=== PATIENT | female | born 1955 | race Two or more races ===

== ENCOUNTER 2017-01-25 18:15 | Emergency (ER) | payer MEDICAID ==
[~2017-01-25] VITALS: Ht 154.9 cm; Wt 67.1 kg
[~2017-01-25 18:15] MED LIST: ARIMIDEX1 MG ORAL; ATORVASTATIN CA20 MG ORAL; CIPRO500 MG PO; FLUOXETINE HCL20 MG ORAL; IBUPROFEN600 MG ORAL; LIPITOR20 MG ORAL; MECLIZINE HCL25 MG ORAL; METFORMIN HCL1000 M1 ORAL; METFORMIN HCL500 M1 ORAL; NKM; NORCO 5-325 TA1 EACH ORAL; ZITHROMAX250 MG ORAL; ZOFRAN ODT4 MG ORAL
[2017-01-25 18:40] VITALS: BP 117/70
[2017-01-25] MEDS ORDERED: AMOXICILLIN500 MG ORAL (19:28)
[2017-01-25 19:50] VITALS: BP 120/76
--- NOTE | 2017-01-25 21:36 | Emergency Room Report ---
History of Present Illness General Chief Complaint: Flu Like Symptoms Present Illness HPI The patient is a 61-year-old female presenting for 2 weeks of productive cough, subjective fevers, and sore throat. Sputum produces yellow to green. She denies any sick contacts or recent travel. Pain is described as a 7/10 dull ache to the back of the throat and does not radiate. Pain worse with swallowing and coughing. She denies other symptoms including nausea, vomiting, rash, headache, dizziness, hemoptysis, abdominal pain Allergies: Coded Allergies: No Known Allergies (Unverified , 03/03/13) Patient History Past Medical History: see triage record Pertinent Family History: none Reviewed Nursing Documentation: PMH: Agreed, PSxH: Agreed Nursing Documentation-PMH Hx Hypertension: No - HYPERCHOLESTEROLEMIA Hx Diabetes: Yes Hx Cancer: Yes - R BREAST Review of Systems All Other Systems: negative except mentioned in HPI Physical Exam Vital Signs Date Time Temp Pulse Resp B/P Pulse Ox O2 Delivery O2 Flow Rate FiO2 01/25/17 18:18 98.2 93 18 117/70 97 Room Air Sp02 EP Interpretation: reviewed, normal General Appearance: no apparent distress, alert, GCS 15, non-toxic Head: normocephalic, atraumatic Eyes: bilateral eye PERRL, bilateral eye normal inspection ENT: hearing grossly normal, no angioedema, normal voice, tonsillar swelling, pharyngeal erythema Neck: full range of motion, supple/symm/no masses Respiratory: chest non-tender, lungs clear, normal breath sounds, speaking full sentences Cardiovascular #1: regular rate, rhythm, no edema Musculoskeletal: back normal, gait/station normal, normal range of motion, non- tender Neurologic: alert, oriented x3, responsive, motor strength/tone normal, sensory intact, normal gait, speech normal Psychiatric: judgement/insight normal, memory normal, mood/affect normal, no suicidal/homicidal ideation Skin: normal color, no rash, warm/dry, well hydrated Lymphatic: adenopathy Medical Decision Making PA Attestation Dr. Hugo is my supervising physician. Patient management was discussed with my supervising physician Diagnostic Impression: Primary Impression: Pharyngitis, acute Qualified Codes: J02.9 - Acute pharyngitis, unspecified ER Course The patient is a 61-year-old female presenting for 2 weeks of productive cough, subjective fevers, and sore throat Differential diagnosis include but not limited to pharyngitis, sinusitis, AOM, bronchitis, PNA Physical exam: Vitals within normal limits. Afebrile. No apparent distress HEENT exam: There is bilateral tonsillar edema, erythema, and exudate. Uvula midline. Moist mucous membranes. There is bilateral cervical lymphadenopathy. Lungs are clear to auscultation bilaterally Skin is warm and dry. No rash CXR unremarkable The patient will be discharged home with a prescription for amoxicillin and is given ER precautions. Patient will followup with primary care Chest X-Ray Diagnostic Results EP Interpretation: Yes Findings: no consolidation, no effusion, no pneumothorax, no acute cardiopulmonary disease Number of Views: 1 PA Scribe Text I am acting as scribe for my supervising physician. My supervising physician's interpretation of the chest xrays are there is no consolidation, no effusion, no acute cardiopulmonary disease, no pneumothorax Last Vital Signs Date Time Temp Pulse Resp B/P Pulse Ox O2 Delivery O2 Flow Rate FiO2 01/25/17 19:50 98.4 89 17 120/76 98 Room Air Status: improved Disposition: HOME, SELF-CARE Condition: Improved Scripts Amoxicillin* (AMOXIL*) 500 Mg Capsule 500 MG ORAL Q12HR, #20 CAP Prov: CARSON TURCIOS 01/25/17 Referrals: [facility] (PCP) Patient Instructions: Pharyngitis Additional Instructions: I discussed my findings with the patient. All questions and concerns have been answered. Treatment and medication compliance have been addressed. I advised the patient that they need to follow up with PMD in 3-5 days. Return to ED if pain remains or worsens, cough worsens or remains, you notice blood in your sputum, you notice wheezing, you experience a fever, or if needed for any reason. Patient verbalized understanding of discharge instructions. CARSON TURCIOS January 25, 2017 21:36
--- NOTE | 2017-01-26 10:36 | Diagnostic Imaging Report ---
Indications: COUGH Technique: Portable AP chest Findings: Comparison: 12/18/07 Right breast now absent. Surgical clips now noted in right axilla, right hilum. Visualized skeletal structures, remainder of the cardiomediastinal silhouette, pulmonary vasculature and parenchyma, and pleural surfaces remain unremarkable in appearance. IMPRESSION: No evidence of acute cardiopulmonary disease, unchanged Interval right mastectomy, right axillary and hilar surgeries
== END 2017-01-25 19:50 | disposition home or self-care (01) ==
LOC: EMR 18:40
DX: J02.9 Acute pharyngitis, unspecified (principal); R05 Cough; E78.00 Pure hypercholesterolemia, unspecified; E11.9 Type 2 diabetes mellitus without complications; Z85.3 Personal history of malignant neoplasm of breast
CPT/HCPCS: 71010; 99283; 99284

== ENCOUNTER 2017-05-25 03:03 | Emergency (ER) | payer MEDICAID ==
[~2017-05-25] VITALS: Ht 152.4 cm; Wt 49.0 kg
[~2017-05-25 03:03] MED LIST changes: +AMOXICILLIN500 MG ORAL
[2017-05-25] MEDS ORDERED: GLIPIZIDE5 MG ORAL (03:16)
[2017-05-25 03:22] VITALS: BP 132/76
[2017-05-25] MEDS ORDERED: MOBIC7.5 MG ORAL (03:36)
--- NOTE | 2017-05-25 03:36 | Emergency Room Report ---
History of Present Illness General Chief Complaint: Headache Source: Patient Present Illness [facility] this is a 61-year-old female who present to give a headache. She described the pain as the back of her head going to her neck. Worse with movement. No nausea no vomiting. No focal deficit. No trauma. No problem with her vision. Denies any other complaint. Tylenol helps. Allergies: Coded Allergies: No Known Allergies (Unverified , 03/03/13) Patient History Past Medical History: see triage record, old chart reviewed Past Surgical History: other Pertinent Family History: none Social History: Denies: smoking Last Menstrual Period: n/a Now: No Immunizations: other Reviewed Nursing Documentation: PMH: Agreed, PSxH: Agreed Nursing Documentation-PMH Hx Hypertension: No - HYPERCHOLESTEROLEMIA Hx Diabetes: Yes Hx Cancer: Yes - R BREAST Review of Systems Eye: Denies: eye pain, blurred vision ENT: Denies: ear pain, nose congestion, throat swelling Respiratory: Denies: cough, shortness of breath Cardiovascular: Denies: chest pain, palpitations Gastrointestinal: Denies: abdominal pain, diarrhea, nausea, vomiting Musculoskeletal: Denies: back pain, joint pain Skin: Denies: rash Neurological: Denies: headache, numbness Endocrine: Denies: increased thirst, increased urine Hematologic/Lymphatic: Denies: easy bruising All Other Systems: negative except mentioned in HPI Physical Exam Vital Signs Date Time Temp Pulse Resp B/P (MAP) Pulse Ox O2 Delivery O2 Flow Rate FiO2 05/25/17 03:11 97.7 86 16 132/76 96 Room Air vitals normal Sp02 EP Interpretation: reviewed, normal General Appearance: well appearing, no apparent distress, alert Head: normocephalic, atraumatic Eyes: bilateral eye PERRL, bilateral eye EOMI ENT: hearing grossly normal, normal pharynx Neck: full range of motion, supple, no meningismus, tender - Over the upper cervical area. Worse with movement her head. No meningeal signs. Respiratory: chest non-tender, lungs clear, normal breath sounds Cardiovascular #1: regular rate, rhythm, no murmur Gastrointestinal: normal bowel sounds, non tender, no mass, no organomegaly, no bruit, non-distended Musculoskeletal: back normal, gait/station normal, normal range of motion Psychiatric: mood/affect normal Skin: warm/dry Medical Decision Making Diagnostic Impression: Primary Impression: Osteoarthritis of neck Qualified Codes: M47.812 - Spondylosis without myelopathy or radiculopathy, cervical region Additional Impression: Headache Qualified Codes: R51 - Headache ER Course Patient with headache secondary to neck pain. No red flags indicate cauda equina syndrome, spinal or abscess or neoplastic process. No evidence of bleed or meningitis. No evidence of neoplastic process. We'll discharge home. Last Vital Signs Date Time Temp Pulse Resp B/P (MAP) Pulse Ox O2 Delivery O2 Flow Rate FiO2 05/25/17 03:22 97.7 16 132/76 96 Room Air 05/25/17 03:11 86 Status: improved Disposition: HOME, SELF-CARE Condition: Stable Scripts Meloxicam* (MOBIC*) 7.5 Mg Tablet 7.5 MG ORAL DAILY, #30 TAB 0 Refills Prov: GILL VELASCO M.D. 05/25/17 Referrals: [facility] (PCP) Additional Instructions: followup with your DrBety in 7 days. Return if symptom worsen. GILL VELASCO M.D. May 25, 2017 03:36
[2017-05-25 03:42] VITALS: BP 132/76
== END 2017-05-25 03:44 | disposition home or self-care (01) ==
LOC: EMR 03:30
DX: M47.892 Other spondylosis, cervical region (principal); R51 Headache; E11.9 Type 2 diabetes mellitus without complications; Z85.3 Personal history of malignant neoplasm of breast; E78.00 Pure hypercholesterolemia, unspecified
CPT/HCPCS: 99283

== ENCOUNTER 2018-05-02 12:51 | Emergency (ER) | payer MEDICAID ==
[~2018-05-02] VITALS: Ht 154.9 cm; Wt 67.1 kg
[~2018-05-02 12:51] MED LIST changes: +GLIPIZIDE5 MG ORAL; +MOBIC7.5 MG ORAL
[2018-05-02 13:15] VITALS: BP 116/67
[2018-05-02] MEDS ORDERED: Methocarbamol 500mg tab ORAL ONE (13:45)
[2018-05-02] MEDS ORDERED: Ketorolac 30mg Inj IM ONE (13:45)
--- NOTE | 2018-05-02 13:51 | Emergency Room Report ---
History of Present Illness General Chief Complaint: Pain Source: Patient Present Illness HPI 62-year-old female patient presents ER complaining of right-sided hip pain for the past week. Reports pain begins lower back and radiates down her right side towards her hip and to her leg. Denies recent injury or trauma. Reports takes Tylenol for symptoms which pops relief of symptoms. Denies dysuria, hematuria, vaginal discharge. Denies fever, chest pain, shortness of breath, abdominal pain. states she is able to walk. Denies bowel or bladder incontinence. reports last menstrual period "years ago". denies other acute symptoms. denies diarrhea or blood in stool. Allergies: Coded Allergies: No Known Allergies (Unverified , 03/03/13) Patient History Past Medical History: see triage record Now: No Reviewed Nursing Documentation: PMH: Agreed; PSxH: Agreed Nursing Documentation-PMH Past Medical History: No History, Except For Hx Hypertension: No - HYPERCHOLESTEROLEMIA Hx Diabetes: Yes Hx Cancer: Yes - R BREAST Review of Systems All Other Systems: negative except mentioned in HPI Physical Exam Vital Signs Date Time Temp Pulse Resp B/P (MAP) Pulse Ox O2 Delivery O2 Flow Rate FiO2 05/02/18 13:10 99.3 74 20 116/67 96 Room Air 99.3 Sp02 EP Interpretation: reviewed, normal General Appearance: well appearing, no apparent distress, alert, GCS 15, non- toxic Head: normocephalic, atraumatic Eyes: bilateral eye normal inspection, bilateral eye PERRL ENT: hearing grossly normal, normal pharynx, no angioedema, normal voice, uvula midline, moist mucus membranes Neck: full range of motion Respiratory: lungs clear, normal breath sounds, no rhonchi, no respiratory distress, no accessory muscle use, no wheezing, speaking full sentences Cardiovascular #1: regular rate, rhythm, no edema Musculoskeletal: back normal, digits/nails normal, gait/station normal, normal range of motion, non-tender, no calf tenderness, pelvis stable, David's Sign negative, other - no leg length discrepancy, leg not held in internal and external rotation, no point tenderness, no spinous process tenderness or bony depression spine Neurologic: alert, oriented x3, responsive, escrow assistant III-XII nml as tested, motor strength/tone normal, SLR negative, sensory intact, cerebellar normal, normal gait, speech normal Psychiatric: mood/affect normal Skin: no rash Medical Decision Making PA Attestation Dr. Tse is my supervising Physician whom patient management has been discussed with. Diagnostic Impression: Primary Impression: Hip pain, left Additional Impression: Low back pain ER Course Pt. presents to the ED c/o low back and right-sided hip pain. Ddx considered but are not limited to fracture, sprain, strain, contusion, dislocation, disc herniation, muscle spasm, sciatica. No erythema, no warmth to touch, no fever, nontoxic appearing, low suspicion for septic joint. no leg length discrepancy, no internal or external rotation, able to ambulate, low suspicion for dislocation or fracture. Vital signs: are WNL, pt. is afebrile Ordered CT, UA, and pain medication. ER COURSE Provided with pain medication. UA unremarkable, patient asymptomatic, negative nitrites, low suspicion for UTI , does not require antibiotics at this time. CT of the lumbar spine and pelvis she has no acute fracture, degenerative changes noted, bulging disks noted per the official report. discussed with patient, likely cause of symptoms. Discuss results with the patient. Provided patient with copy of results. Instructed patient to followup with PCP and discuss results of report with patient, discuss need for further treatment and referral. Patient instructed on RICE method: rest, ice, compression, elevation. Patient instructed on rest, ice and heat. Patient instructed to be WBAT Contact information for orthopedic urgent care provided, follow-up with urgent care if unable to followup with primary care provider and get referral to drug regulatory affairs specialist. Followup with primary care provider. Discuss referral to ortho/pain management/ PT as needed. Discuss further imaging with MRI/CT as needed. follow-up with primary care provider at scheduled appointment. patient reports symptoms improved, ambulatory, Ok for discharge to home. DISCHARGE: -Rx provided for Tylenol for pain symptoms. -Rx provided for Methocarbamol. SE drowsiness, do not drink, drive, or operate heavy machinery while using. - Rx provided for lidocaine patches At this time pt. is stable for d/c to home. Patient is resting comfortably, in no acute distress, nontoxic appearing, talking without difficulty. Will provide printed patient care instructions, and any necessary prescriptions. Patient instructed to follow with primary care provider in 3 - 5 days and to request further follow-up as needed. Care plan and follow up instructions have been discussed with the patient prior to discharge. Take medications as directed. Patient questions asked and answered. Patient reports understanding and agreement to treatment plan. ER precautions given, patient instructed to return to ER immediately for any new or worsening of symptoms. - Please note that this Emergency Department Report was dictated using [employer]uid[employer] disabilities resource teacher technology software, occasionally this can lead to erroneous entry secondary to interpretation by the dictation equipment. Labs Test 05/02/18 13:40 Urine Color Pale yellow Urine Appearance Slightly cloudy Urine pH 5 (4.5-8.0) Urine Specific [place] 1.025 (1.005-1.035) Urine Protein Negative (NEGATIVE) Urine Glucose (UA) Negative (NEGATIVE) Urine Ketones Negative (NEGATIVE) Urine Occult Blood Negative (NEGATIVE) Urine Nitrite Negative (NEGATIVE) Urine Bilirubin Negative (NEGATIVE) Urine Urobilinogen Normal MG/DL (0.0-1.0) Urine Leukocyte Esterase 2+ (NEGATIVE) Urine RBC 0-2 /HPF (0 - 2) Urine WBC 5-10 /HPF (0 - 2) Urine Squamous Epithelial Cells Few /LPF (NONE/OCC) Urine Bacteria Few /HPF (NONE) CT/MRI/US Diagnostic Results CT/MRI/US Diagnostic Results #1: Imaging Test Ordered: CT lumbar spine Impression Impression: No acute bony trauma Degenerative changes, as detailed on a level by level basis above, most notable at L3-4 At L3-4, there is mild circumferential annular bulge. This does not significantly narrow the spinal canal, but may compromise the right lateral recess. There is minimal bilateral facet arthrosis. At L4-5, there is circumferential annular bulge as well as posterior broad-based central disc protrusion and osteophyte formation. In combination with ligamentum flavum hypertrophy, this results in mild narrowing of the spinal canal. The neural foramina are preserved. There is minimal facet arthrosis on the right. At L5-S1, there is minimal circumferential annular bulge, which does not significantly compromise the spinal canal. There is mild narrowing of the right neural foramen by facet arthrosis The included extra spinal soft tissues are unremarkable. CT/MRI/US Diagnostic Results #2: Imaging Test Ordered: CT pelvis Impression Impression: No acute abnormality Minimal degenerative change of the right hip joint Colonic diverticulosis Last Vital Signs Date Time Temp Pulse Resp B/P (MAP) Pulse Ox O2 Delivery O2 Flow Rate FiO2 05/02/18 13:41 99.3 05/02/18 13:15 20 116/67 96 Room Air 05/02/18 13:10 74 Status: improved Disposition: HOME, SELF-CARE Condition: Stable Scripts Acetaminophen* (TYLENOL EXTRA STRENGTH*) 500 Mg Tablet 500 MG ORAL Q8H PRN for Prn Headache/Temp > 101, #30 TAB 0 Refills Prov: Markus Mancilla 05/02/18 Methocarbamol* (ROBAXIN*) 500 Mg Tablet 500 MG PO TID, #21 TAB 0 Refills Prov: Markus Mancilla 05/02/18 Lidocaine (Lidocaine) 1 Each Adh..patch 5 % TP DAILY, #7 PATCH Prov: Markus Mancilla 05/02/18 Referrals: NOT CHOSEN [facility],REFERRING (PCP) Patient Instructions: Back Exercises, [id number], Back Pain, Adult, Easy-to- Read, Herniated Disk, [id number], Hip Pain, Sciatica, Sciatica With Rehab- [facility] Additional Instructions: Patient instructed to follow up with primary care provider 3-5 and discuss further referral and imaging at that time. Patient instructed on rest, ice and heat. Do not take muscle relaxant prior to drinking, driving, or operating heavy machinery. Take medications as directed. Patient questions asked and answered. ER precautions given, patient instructed to return to ER immediately for any new or worsening of symptoms. Markus Mancilla May 02, 2018 13:51
[2018-05-02 14:07] LABS: APPEARANCE,URINE SLIGHTLY CLOUDY; BILIRUBIN, URINE NEGATIVE (NEGATIVE); COLOR,URINE PALE YELLOW; GLUCOSE, URINE (UA) NEGATIVE (NEGATIVE); KETONES,URINE NEGATIVE (NEGATIVE); LEUKOCYTE ESTERASE ,URINE 2+ (NEGATIVE); NITRITE,URINE NEGATIVE (NEGATIVE); PH,URINE 5 (4.5-8.0); PROTEIN,URINE NEGATIVE (NEGATIVE); UROBILINOGEN,URINE NORMAL MG/DL (0.0-1.0)
--- NOTE | 2018-05-02 14:40 | Diagnostic Imaging Report ---
Indications: Back pain with pain radiating down right leg Technique: Spiral acquisitions obtained through the lumbar spine. Multiplanar reconstructions were generated. No IV contrast utilized. Total dose length product 539.82 mGycm. CTDIvol(s) 16.07 mGy. Dose reduction achieved using automated exposure control Comparison: none Findings: Vertebral body heights are preserved. There is minimal posterior offset of L2 on L3, vertebral body alignment otherwise normal. The disc spaces are preserved. No acute fractures. No dislocations. There are degenerative changes of the bilateral sacroiliac joints. At L3-4, there is mild circumferential annular bulge. This does not significantly narrow the spinal canal, but may compromise the right lateral recess. There is minimal bilateral facet arthrosis. At L4-5, there is circumferential annular bulge as well as posterior broad-based central disc protrusion and osteophyte formation. In combination with ligamentum flavum hypertrophy, this results in mild narrowing of the spinal canal. The neural foramina are preserved. There is minimal facet arthrosis on the right. At L5-S1, there is minimal circumferential annular bulge, which does not significantly compromise the spinal canal. There is mild narrowing of the right neural foramen by facet arthrosis The included extra spinal soft tissues are unremarkable. Impression: No acute bony trauma Degenerative changes, as detailed on a level by level basis above, most notable at L3-[address] scanner at [facility] is accredited by the [employer] and the scans are performed using protocols designed to limit radiation exposure to as low as reasonably achievable to attain images of sufficient resolution adequate for diagnostic evaluation.
--- NOTE | 2018-05-02 14:48 | Diagnostic Imaging Report ---
Indication: Right leg pain Technique: Noncontrast spiral acquisitions obtained through the pelvis. Multiplanar reconstructions generated. Total dose length product 343.92 mGycm. CTDIvol(s) 13.61 mGy. Dose reduction achieved using automated exposure control Comparison: none Findings: No acute fractures. No dislocations. There are degenerative changes of the bilateral sacroiliac joints. There is slight narrowing of the right hip joint. The pelvic viscera demonstrate colonic diverticulosis Impression: No acute abnormality Minimal degenerative change of the right hip joint Colonic diverticulosis The CT scanner at [facility] is accredited by the [employer] and the scans are performed using protocols designed to limit radiation exposure to as low as reasonably achievable to attain images of sufficient resolution adequate for diagnostic evaluation.
[2018-05-02] MEDS ORDERED: TYLENOL EXTRA500 MG ORAL (15:07)
[2018-05-02] MEDS ORDERED: LIDOCAINE700 M1 TP (15:07)
[2018-05-02] MEDS ORDERED: ROBAXIN500 MG PO (15:07)
[2018-05-02 15:23] VITALS: BP 123/76
== END 2018-05-02 15:26 | disposition home or self-care (01) ==
LOC: EMR 13:22
DX: M25.551 Pain in right hip (principal); M54.5 Low back pain; E11.8 Type 2 diabetes mellitus with unspecified complications; M51.36 Other intervertebral disc degeneration, lumbar region; M16.12 Unilateral primary osteoarthritis, left hip; K57.30 Diverticulosis of large intestine without perforation or abscess without bleeding; E78.00 Pure hypercholesterolemia, unspecified
CPT/HCPCS: 72131; 72192; 81003; 96372; 99284; J1885

== ENCOUNTER 2019-01-13 20:33 | Emergency (ER) | payer MEDICAID ==
[~2019-01-13] VITALS: Ht 154.9 cm; Wt 66.2 kg
[~2019-01-13 20:33] MED LIST changes: +LIDOCAINE700 M1 TP; +ROBAXIN500 MG PO; +TYLENOL EXTRA500 MG ORAL
[2019-01-13] MEDS ORDERED: ASPIR 8181 MG ORAL (20:40)
--- NOTE | 2019-01-13 20:42 | NUR ---
ED Nurse Note: Pt arrived ED from home, c/o both legs pain 7/10 due to fell one month ago. Pt is A/O X 4. Vital signs stable at this time, waiting for orders.
[2019-01-13] MEDS ORDERED: ALPRAZOLAM0.25 MG ORAL (21:40)
[2019-01-13 21:47] VITALS: BP 116/64
--- NOTE | 2019-01-13 21:47 | NUR ---
ER DISCHARGE NOTE: Patient is cleared to be discharged per Lakshmi. Pt is A/O x 4 on room air with stable vital signs. Pt was given dc and prescription instructions and was able to verbalize understanding. Pt's ID band removed. Pt is able to ambulate with steady gait and pt took all belongings.
--- NOTE | 2019-01-14 02:29 | Emergency Room Report ---
History of Present Illness General Chief Complaint: Lower Extremity Injury Source: Patient Present Illness HPI 63-year-old female presents ED for evaluation. Patient complaining of bilateral leg pain 1 month. Pain is dull, 5 out of 10, nonradiating. Is able to walk. Denies any back pain. Denies any bowel or bladder incontinence. States she is also feeling tingling in her mouth and in her arms. States that she saw her PMD for this and was told that she may have anxiety. Patient states that she does feel anxious from time to time but is not on medication. Denies SI or HI. No other aggravating relieving factors. Denies any other associated symptoms Allergies: Coded Allergies: No Known Allergies (Unverified , 03/03/13) Patient History Past Medical History: DM Past Surgical History: none Pertinent Family History: none Social History: Denies: smoking, alcohol use, drug use Last Menstrual Period: 2016 Now: No Immunizations: UTD Reviewed Nursing Documentation: PMH: Agreed; PSxH: Agreed Nursing Documentation-PMH Past Medical History: No History, Except For Hx Hypertension: No - HYPERCHOLESTEROLEMIA Hx Diabetes: Yes Hx Cancer: Yes - R BREAST Review of Systems All Other Systems: negative except mentioned in HPI Physical Exam Vital Signs Date Time Temp Pulse Resp B/P (MAP) Pulse Ox O2 Delivery O2 Flow Rate FiO2 01/13/19 20:34 97.9 75 14 119/69 95 Room Air Sp02 EP Interpretation: reviewed, normal General Appearance: no apparent distress, alert, GCS 15, non-toxic Head: normocephalic, atraumatic Eyes: bilateral eye normal inspection, bilateral eye PERRL ENT: hearing grossly normal, normal pharynx, no angioedema, normal voice Neck: full range of motion, supple/symm/no masses Respiratory: chest non-tender, lungs clear, normal breath sounds, speaking full sentences Cardiovascular #1: regular rate, rhythm, no edema Cardiovascular #2: 2+ carotid (R), 2+ carotid (L), 2+ radial (R), 2+ radial (L) , 2+ dorsalis pedis (R), 2+ dorsalis pedis (L) Gastrointestinal: normal bowel sounds, non tender, soft, non-distended, no guarding, no rebound Rectal: deferred Genitourinary: normal inspection, no CVA tenderness Musculoskeletal: back normal, gait/station normal, normal range of motion, non- tender Neurologic: alert, oriented x3, responsive, motor strength/tone normal, sensory intact, speech normal Psychiatric: judgement/insight normal, memory normal, no suicidal/homicidal ideation, no delusions, anxious Reflexes: 3+ bicep (R), 3+ bicep (L), 3+ tricep (R), 3+ tricep (L), 3+ knee (R) , 3+ knee (L) Skin: normal color, no rash, warm/dry, well hydrated Lymphatic: no adenopathy Medical Decision Making Diagnostic Impression: Primary Impression: Anxiety ER Course Hospital Course 63-year-old F presents ED complaining of tingling to hands and face pain in both legs Differential diagnoses include: contusion, muscle cramps, anxiety Clinical course Patient placed on stretcher. on radiographer cardiac catheterization. After initial history, physical exam reveals a middle-aged female in no acute distress. 5 out of 5 motor strength in all extremities. No focal neurological deficits. No sensory deficits. No palpable bony tenderness. No crepitus or bruising. Discussed findings with patient. I believe her generalized vague symptoms are likely related to anxiety. Patient appears anxious in ED. I see no reason for imaging or workup at this time. Will discharge with short course of low-dose Xanax. We'll also provide mental health for referrals. Safe for discharge close outpatient follow-up I. I feel this is a highly complex case requiring extensive working including EKG/Rhythm strip, Xray/CT/US, Blood/urine lab work, repeat exams while in ED, and administration of strong opiates/narcotics for pain control, admission to hospital or close patient follow up. Diagnosis - anxiety Stable and discharged to home with Rx Xanax. Followup with PMD. Return to ED if symptoms recur or worse Last Vital Signs Date Time Temp Pulse Resp B/P (MAP) Pulse Ox O2 Delivery O2 Flow Rate FiO2 01/13/19 21:47 97.9 83 14 116/64 95 Room Air Status: improved Disposition: HOME, SELF-CARE Condition: Stable Scripts Alprazolam* (XANAX*) 0.25 Mg Tablet 0.25 MG ORAL TID PRN for For Anxiety, #10 TAB Prov: Sebastien Martins MD 01/13/19 Referrals: NON PHYSICIAN (PCP) [facility] + [facility] Psych ER - Peds ER - [facility] Intake Hotline - Patient Instructions: Panic Attacks, [id number] Sebastien Martins MD Jan 14, 2019 02:29
== END 2019-01-13 22:30 | disposition home or self-care (01) ==
LOC: EMR 22:26
DX: F41.9 Anxiety disorder, unspecified (principal); M79.605 Pain in left leg; M79.604 Pain in right leg; E78.00 Pure hypercholesterolemia, unspecified; E11.9 Type 2 diabetes mellitus without complications; Z85.3 Personal history of malignant neoplasm of breast
CPT/HCPCS: 99282

== ENCOUNTER 2019-02-03 16:43 | Emergency (ER) | payer MEDICAID ==
[~2019-02-03] VITALS: Ht 154.9 cm; Wt 66.7 kg
[~2019-02-03 16:43] MED LIST changes: +ALPRAZOLAM0.25 MG ORAL; +ASPIR 8181 MG ORAL
[2019-02-03 17:00] VITALS: BP 114/68
[2019-02-03] MEDS ORDERED: Acetaminophen 500mg (ES) tab ORAL ONE (17:00)
[2019-02-03] MEDS ORDERED: Methocarbamol 750mg tab ORAL ONE (17:00)
--- NOTE | 2019-02-03 17:00 | NUR ---
ED Nurse Note: pt states she has back pain and feels something in left breast, pt stated that she has history of breast cancer on the right and can feel it to the left now. pt is complaining of 10/10 pain x 2 weeks. and only take tylenol for it. seen by pedro. will continue to monitor.
--- NOTE | 2019-02-03 17:05 | NUR ---
ED Nurse Note: pt went to xray with tech
[2019-02-03] MEDS ORDERED: TYLENOL EXTRA500 MG ORAL (18:15)
[2019-02-03] MEDS ORDERED: ROBAXIN-750750 MG PO (18:15)
[2019-02-03] MEDS ORDERED: LIDODERM700 M1 TOPIC (18:15)
--- NOTE | 2019-02-03 18:21 | Diagnostic Imaging Report ---
Indication: Left sided rib pain. Trauma. Findings: 4 views of the left chest wall was obtained for evaluation of the ribs. There is no acute fracture identified. There is no soft tissue swelling demonstrated. The lung is essentially clear. There is no pneumothorax. The costophrenic angle is sharp. Other osseous structures visualized are unremarkable. There are surgical clips in the right axilla and right suprahilar region . There is absence of the right breast consistent with mastectomy. Impression: Negative left unilateral rib series. Signs of previous right mastectomy and axillary node dissection for breast carcinoma.
[2019-02-03 18:35] VITALS: BP 114/68
--- NOTE | 2019-02-03 18:35 | NUR ---
ER DISCHARGE NOTE: Patient is cleared to be discharged per ERMD, pt is aox4, on room air, with stable vital signs. pt was given dc and prescription instructions, pt was able to verbalize understanding, pt id band removed without complications. pt is able to ambulate with steady gait. pt took all belongings.
--- NOTE | 2019-02-03 21:41 | Emergency Room Report ---
History of Present Illness General Chief Complaint: Back Pain-No Injury Source: Patient Present Illness HPI 63 yo F presents to ED c/o L upper back pain. started 2 weeks ago. pain is 6/ 10 dull, radiating to L anterior chest. denies SOB. Denies any recent fall or injury. Denies chest pain. No other aggravating relieving factors. Denies any other associated symptoms Allergies: Coded Allergies: No Known Allergies (Unverified , 03/03/13) Patient History Past Medical History: DM Past Surgical History: none Pertinent Family History: none Social History: Denies: smoking, alcohol use, drug use Now: No Immunizations: UTD Reviewed Nursing Documentation: PMH: Agreed; PSxH: Agreed Nursing Documentation-PMH Past Medical History: No History, Except For Hx Hypertension: No - HYPERCHOLESTEROLEMIA Hx Diabetes: Yes Hx Cancer: Yes - R BREAST Review of Systems All Other Systems: negative except mentioned in HPI Physical Exam Vital Signs Date Time Temp Pulse Resp B/P (MAP) Pulse Ox O2 Delivery O2 Flow Rate FiO2 02/03/19 16:47 98.4 87 17 94 Room Air 02/03/19 17:00 114/68 Sp02 EP Interpretation: reviewed, normal General Appearance: no apparent distress, alert, GCS 15, non-toxic Head: normocephalic, atraumatic Eyes: bilateral eye normal inspection, bilateral eye PERRL ENT: hearing grossly normal, normal pharynx, no angioedema, normal voice Neck: full range of motion, supple/symm/no masses Respiratory: lungs clear, normal breath sounds, speaking full sentences, other - reproducible L sided chest wall pain Cardiovascular #1: regular rate, rhythm, no edema Cardiovascular #2: 2+ carotid (R), 2+ carotid (L), 2+ radial (R), 2+ radial (L) , 2+ dorsalis pedis (R), 2+ dorsalis pedis (L) Gastrointestinal: normal bowel sounds, non tender, soft, non-distended, no guarding, no rebound Rectal: deferred Genitourinary: normal inspection, no CVA tenderness Musculoskeletal: gait/station normal, normal range of motion, tender - L upper back pain Neurologic: alert, oriented x3, responsive, motor strength/tone normal, sensory intact, speech normal Psychiatric: judgement/insight normal, memory normal, mood/affect normal, no suicidal/homicidal ideation Reflexes: 3+ bicep (R), 3+ bicep (L), 3+ tricep (R), 3+ tricep (L), 3+ knee (R) , 3+ knee (L) Skin: normal color, no rash, warm/dry, well hydrated Lymphatic: no adenopathy Medical Decision Making Diagnostic Impression: Primary Impression: Upper back strain Qualified Codes: S29.012A - Strain of muscle and tendon of back wall of thorax , initial encounter ER Course Hospital Course 63 yo F presents to ED c/o L upper back and rib pain Differential diagnoses include: Fracture, dislocation, sprain, contusion Clinical course Patient placed on stretcher. After initial history and physical, I ordered pain medications and CXR with rib series Xrays read shows no acute fracture/dislocation. no PTX Discussed findings with patient. Pain is likely muscular. Improved after medications. Safe for discharge with close outpatient follow-up. We'll provide referrals Diagnosis - upper back pain Stable and discharged to home with prescription for tylenol, robaxin, lidoderm. weight bear as tolerated. Followup with PMD. Return to ED if symptoms recur or worsen Other X-Ray Diagnostic Results Other X-Ray Diagnostic Results : X-Ray ordered: CXR + rib series # of Views/Limited Vs Complete: 3 View Indication: Pain EP Interpretation: Yes Interpretation: no dislocation, no soft tissue swelling, no fractures, other - no PTX Impression: No acute disease Electronically Signed by: Electronically signed by Sebastien Martins MD Last Vital Signs Date Time Temp Pulse Resp B/P (MAP) Pulse Ox O2 Delivery O2 Flow Rate FiO2 02/03/19 18:35 98.4 87 17 114/68 94 Room Air Status: improved Disposition: HOME, SELF-CARE Condition: Stable Scripts Lidocaine (Lidoderm) 1 Each Adh..patch 1 PATCH TOPIC DAILY, #7 PATCH 0 Refills Patch(es) may remain in place for up to 12 hours in any 24-hour period. Prov: Sebastien Martins MD 02/03/19 Methocarbamol* (ROBAXIN-750*) 750 Mg Tablet 750 MG PO TID, #21 TAB 0 Refills Prov: Sebastien Martins MD 02/03/19 Acetaminophen* (TYLENOL EXTRA STRENGTH*) 500 Mg Tablet 500 MG ORAL Q8H PRN for Prn Headache/Temp > 101, #30 TAB 0 Refills Prov: Sebastien Martins MD 02/03/19 Patient Instructions: Thoracic Strain, [id number] Sebastien Martins MD February 03, 2019 21:41
== END 2019-02-03 18:35 | disposition home or self-care (01) ==
LOC: EMR 17:07
DX: S29.012A Strain of muscle and tendon of back wall of thorax, initial encounter (principal); X58.XXXA Exposure to other specified factors, initial encounter; Y92.9 Unspecified place or not applicable; E11.9 Type 2 diabetes mellitus without complications; E78.00 Pure hypercholesterolemia, unspecified; Z85.3 Personal history of malignant neoplasm of breast; R07.81 Pleurodynia
CPT/HCPCS: 99283

== ENCOUNTER 2019-04-14 14:23 | Inpatient (IN) | payer MEDICAID ==
[~2019-04-14] VITALS: Ht 154.9 cm; Wt 66.7 kg
[~2019-04-14 14:23] MED LIST changes: +FAMCICLOVIR500 MG ORAL; +LIDODERM700 M1 TOPIC; +ROBAXIN-750750 MG PO
[2019-04-14] MEDS ORDERED: JANUMET 50-5001 EACH ORAL (14:35)
[2019-04-14] MEDS ORDERED: FLUOXETINE HCL20 MG ORAL (14:35)
[2019-04-14] MEDS ORDERED: GLIMEPIRIDE4 MG ORAL (14:35)
--- NOTE | 2019-04-14 14:39 | NUR ---
ED Nurse Note: PT WALKED IN TO ER TODAY FROM HOME. AOX4. PT C/O DIZZINESS AND PALPITATIONS X THIS AM. PT DENIES PALPITATIONS AND DIZZINESS AT THIS TIME. GAIT STEADY IN ER. PT DENIES NAUSEA OR VOMITING THOUGH SHE DOES C/O POSTERIOR HEADACHE, 02/24. PT STATES SHE HAD A SIMILAR EPISODE 2 MONTHS AGO AND THAT SYMPTOMS WENT AWAY WITH EXERCISE.
[2019-04-14 14:41] VITALS: BP 118/68
--- NOTE | 2019-04-14 14:46 | Emergency Room Report ---
History of Present Illness General Chief Complaint: Dizziness Source: Medical Record Present Illness HPI 63 year old female, presents with palpitations x1 month, history of hypertension, hyperlipidemia, diabetes, breast cancer lightheadedness x2 days, she states she had some chest pressure yesterday, some nausea, no vomiting, no aggravating or alleviating factors, she did denotes the severity as mild she also states that her extremities feel sweaty. Patient presents for evaluation Allergies: Coded Allergies: No Known Allergies (Unverified , 03/03/13) Patient History Past Medical History: see triage record Reviewed Nursing Documentation: PMH: Agreed; PSxH: Agreed Nursing Documentation-PMH Past Medical History: No History, Except For Hx Hypertension: No - HYPERCHOLESTEROLEMIA Hx Diabetes: Yes Hx Cancer: Yes - R BREAST Review of Systems Constitutional: Reports: sweats; Denies: chills, fever Eye: Denies: blurred vision, double vision ENT: Denies: throat pain, nasal discharge Respiratory: Denies: cough, shortness of breath Cardiovascular: Reports: chest pain, palpitations Gastrointestinal: Reports: nausea; Denies: abdominal pain, diarrhea, vomiting Genitourinary: Denies: dysuria, pain Musculoskeletal: Denies: back pain, muscle pain Skin: Denies: rash, lesions Neurological: Denies: headache, focal weakness Hematologic/Lymphatic: Denies: easy bleeding, easy bruising All Other Systems: negative except mentioned in HPI Physical Exam Vital Signs Date Time Temp Pulse Resp B/P (MAP) Pulse Ox O2 Delivery O2 Flow Rate FiO2 04/14/19 14:31 98.4 102 18 117/66 (83) 96 Room Air Sp02 EP Interpretation: reviewed, normal General Appearance: well appearing, no apparent distress, alert Head: normocephalic, atraumatic Eyes: bilateral eye PERRL, bilateral eye EOMI ENT: uvula midline, moist mucus membranes Neck: supple, thyroid normal, supple/symm/no masses Respiratory: lungs clear, no respiratory distress, no retraction, no accessory muscle use Cardiovascular #1: normal peripheral pulses, regular rate, rhythm, no edema, no gallop, no murmur Gastrointestinal: non tender, soft, no guarding, no rebound Musculoskeletal: normal inspection Neurologic: alert, oriented x3 Psychiatric: mood/affect normal Skin: no rash, warm/dry Medical Decision Making Diagnostic Impression: Primary Impression: Chest pain Additional Impressions: Pre-syncope Palpitations ER Course Female with comorbidities presents with chest pain, presyncopal symptoms, patient will be admitted ASA Given, EKG negative, troponin negative, patient accepted by Dr. Craig Laboratory Tests Test 04/14/19 14:47 04/14/19 15:00 White Blood Count 9.0 K/UL (4.8-10.8) Red Blood Count 4.08 M/UL (4.20-5.40) L Hemoglobin 12.7 G/DL (12.0-16.0) Hematocrit 36.0 % (37.0-47.0) L Mean Corpuscular Volume 88 FL (80-99) Mean Corpuscular Hemoglobin 31.0 PG (27.0-31.0) Mean Corpuscular Hemoglobin Concent 35.2 G/DL (32.0-36.0) Red Cell Distribution Width 13.0 % (11.6-14.8) Platelet Count 214 K/UL (150-450) Mean Platelet Volume 7.4 FL (6.5-10.1) Neutrophils (%) (Auto) 76.1 % (45.0-75.0) H Lymphocytes (%) (Auto) 18.4 % (20.0-45.0) L Monocytes (%) (Auto) 4.0 % (1.0-10.0) Eosinophils (%) (Auto) 0.6 % (0.0-3.0) Basophils (%) (Auto) 0.9 % (0.0-2.0) Prothrombin Time 9.9 SEC (9.30-11.50) Prothrombin Time INR 0.9 (0.9-1.1) PTT 23 SEC (23-33) Sodium Level 145 MMOL/L (136-145) Potassium Level 3.3 MMOL/L (3.5-5.1) L Chloride Level 106 MMOL/L (98-107) Carbon Dioxide Level 29 MMOL/L (21-32) Anion Gap 11 mmol/L (5-15) Blood Urea Nitrogen 16 mg/dL (7-18) Creatinine 0.8 MG/DL (0.55-1.30) Estimate Glomerular Filtration Rate > 60 mL/min (>60) Glucose Level 73 MG/DL (74-106) L Calcium Level 9.0 MG/DL (8.5-10.1) Total Bilirubin 0.4 MG/DL (0.2-1.0) Aspartate Amino Transferase (AST) 13 U/L (15-37) L Alanine Aminotransferase (ALT) 22 U/L (12-78) Alkaline Phosphatase 128 U/L (46-116) H Total Creatine Kinase 103 U/L (26-308) Creatine Kinase MB 0.9 NG/ML (0.0-3.6) Creatine Kinase MB Relative Index 0.8 Troponin I 0.000 ng/mL (0.000-0.056) Total Protein 7.8 G/DL (6.4-8.2) Albumin 3.9 G/DL (3.4-5.0) Globulin 3.9 g/dL Albumin/Globulin Ratio 1.0 (1.0-2.7) Lipase 146 U/L (73-393) Thyroid Stimulating Hormone (TSH) 1.245 uiU/mL (0.358-3.740) Free Thyroxine 0.95 NG/DL (0.76-1.46) Free Triiodothyronine 2.2 pg/mL (2.3-4.2) L Urine Color Yellow Urine Appearance Clear Urine pH 5 (4.5-8.0) Urine Specific [place] 1.025 (1.005-1.035) Urine Protein 1+ (NEGATIVE) H Urine Glucose (UA) Negative (NEGATIVE) Urine Ketones Negative (NEGATIVE) Urine Blood Negative (NEGATIVE) Urine Nitrite Negative (NEGATIVE) Urine Bilirubin Negative (NEGATIVE) Urine Urobilinogen 1 MG/DL (0.0-1.0) H Urine Leukocyte Esterase 2+ (NEGATIVE) H Urine RBC 0 /HPF (0 - 2) Urine WBC 0-2 /HPF (0 - 2) Urine Squamous Epithelial Cells Few /LPF (NONE/OCC) Urine Calcium Oxalate Crystals Few /LPF (NONE) Urine Bacteria Occasional /HPF (NONE) EKG Diagnostic Results EKG Time: 15:02 EP Interpretation: NSR, Rate 95, QTc 432, no acute ST elevations, normal axis Rate: normal Rhythm: NSR ST Segments: no acute changes Chest X-Ray Diagnostic Results Chest X-Ray Diagnostic Results : Chest X-Ray Ordered: Yes # of Views/Limited/Complete: 1 View Indication: Chest Pain EP Interpretation: Yes Interpretation: no acute cardiopulmonary disease Impression: No acute disease Electronically Signed by: Jesus Guy MD Last Vital Signs Date Time Temp Pulse Resp B/P (MAP) Pulse Ox O2 Delivery O2 Flow Rate FiO2 04/14/19 14:41 98.2 94 16 118/68 98 Room Air Disposition: ADMITTED INPATIENT Condition: Stable Jesus Guy MD Apr 14, 2019 14:46
[2019-04-14 15:15] LABS: INR 0.9 (0.9-1.1)
[2019-04-14 15:16] LABS: ANION GAP 11 mmol/L (5-15); BLOOD UREA NITROGEN 16 mg/dL (7-18); CARBON DIOXIDE 29 MMOL/L (21-32); CHLORIDE 106 MMOL/L (98-107); CREATININE 0.8 MG/DL (0.55-1.30); POTASSIUM 3.3 MMOL/L (3.5-5.1); SODIUM 145 MMOL/L (136-145)
[2019-04-14 15:17] LABS: BASOPHILS % (AUTO) 0.9 % (0.0-2.0); EOSINOPHILS % (AUTO) 0.6 % (0.0-3.0); HEMOGLOBIN 12.7 G/DL (12.0-16.0); LYMPHOCYTES % (AUTO) 18.4 % (20.0-45.0); MEAN CORPUSCULAR VOLUME 88 FL (80-99); NEUTROPHILS % (AUTO) 76.1 % (45.0-75.0); PLATELET COUNT 214 K/UL (150-450); RED BLOOD COUNT 4.08 M/UL (4.20-5.40)
[2019-04-14 15:19] LABS: APPEARANCE,URINE CLEAR; BILIRUBIN, URINE NEGATIVE (NEGATIVE); GLUCOSE, URINE (UA) NEGATIVE (NEGATIVE); KETONES,URINE NEGATIVE (NEGATIVE); LEUKOCYTE ESTERASE ,URINE 2+ (NEGATIVE); NITRITE,URINE NEGATIVE (NEGATIVE); PH,URINE 5 (4.5-8.0); PROTEIN,URINE 1+ (NEGATIVE); UROBILINOGEN,URINE 1 MG/DL (0.0-1.0)
[2019-04-14 15:20] LABS: COLOR,URINE YELLOW
[2019-04-14 15:31] LABS: ALANINE AMINOTRANSFERASE 22 U/L (12-78); ALBUMIN 3.9 G/DL (3.4-5.0); ALKALINE PHOSPHATASE 128 U/L (46-116); ASPARTATE AMINO TRANSFERASE 13 U/L (15-37); BILIRUBIN,TOTAL 0.4 MG/DL (0.2-1.0); CKMB 0.9 NG/ML (0.0-3.6); CREATINE KINASE 103 U/L (26-308)
--- NOTE | 2019-04-14 16:38 | NUR ---
ED Nurse Note: TELE UNIT CALLED FOR PT REPORT. ED MAGAÑA ON LUNCH AND WILL BE BACK IN 20 MINUTES. WILL CALL BACK AT THAT TIME.
--- NOTE | 2019-04-14 16:53 | NUR ---
ED Nurse Note: TELE UNIT CALLED FOR PT REPORT. REPORT GIVEN TO ED BONE. ED BONE READY TO ACCEPT PT. PT TAKEN UP TO TELE UNIT VIA GURNEY ON TELETYPE TECHNICIAN WITH ALL BELONGINGS ACCOMPANIED BY PRIMARY RN AND EMT. VSS.
--- NOTE | 2019-04-14 17:12 | Diagnostic Imaging Report ---
Indication: Chest pain Technique: One view of the chest Comparison: 02/03/2019 Findings: The lungs and pleural spaces are clear. The heart size is normal. Surgical clips project over the right chest and right axilla. There is no significant interval change Impression: No acute process
--- NOTE | 2019-04-14 17:30 | NUR ---
NURSE NOTES: receiaved patient from Er nurse Rajat. Patient is awake and alert. ambulatory, VSS. Initial assessment completed. denies pain or discomfort. oriented to room. safety precautions in place. bed locked to lowest position. side rails x2 up. call light within patients reach. call out o Dr. Craig for orders. awaiting call back.
--- NOTE | 2019-04-14 18:30 | Consultation ---
History of Present Illness General Date patient seen: Apr 14, 2019 Time patient seen: 18:27 Chief Complaint: Dizziness Present Illness HPI 63 year old female complains of dizziness and palpitatons. Troponin negative, CXR clear. She states this has happened before during exercise. No fevers. Labs all normal. Allergies: Coded Allergies: No Known Allergies (Unverified , 03/03/13) Medication History Scheduled Anastrozole (Arimidex), 1 MG ORAL DAILY, (Reported) Aspirin* (Aspir 81*), 81 MG ORAL DAILY, (Reported) Atorvastatin Calcium* (Atorvastatin Calcium*), 20 MG ORAL BEDTIME, (Reported) Famciclovir* (Famvir*), 500 MG ORAL TID Fluoxetine Hcl* (Fluoxetine Hcl*), 20 MG ORAL DAILY, (Reported) Glimepiride* (Glimepiride*), 8 MG ORAL BEFORE BREAKFAST, (Reported) Glipizide* (Glipizide*), 5 MG ORAL BIDAC, (Reported) Lidocaine (Lidocaine), 5 % TP DAILY Lidocaine (Lidoderm), 1 PATCH TOPIC DAILY Meloxicam* (Mobic*), 7.5 MG ORAL DAILY Metformin Hcl* (Metformin Hcl*), 500 MG ORAL TWICE A DAY, (Reported) Methocarbamol* (Robaxin*), 500 MG PO TID Methocarbamol* (Robaxin-750*), 750 MG PO TID Sitagliptin Phos/Metformin Hcl (Janumet 50-500 Mg Tablet), 1 TAB ORAL TWICE A DAY, (Reported) Scheduled PRN Acetaminophen* (Tylenol Extra Strength*), 500 MG ORAL Q8H PRN for Prn Headache/ Temp > 101 Acetaminophen* (Tylenol Extra Strength*), 500 MG ORAL Q8H PRN for Prn Headache/ Temp > 101 Alprazolam* (Xanax*), 0.25 MG ORAL TID PRN for For Anxiety Patient History Healthcare decision maker N Resuscitation status Advanced Directive on File Review of Systems Constitutional: Reports: no symptoms Eye: Reports: no symptoms ENT: Reports: no symptoms Respiratory: Reports: no symptoms Cardiovascular: Reports: palpitations Gastrointestinal: Reports: no symptoms Genitourinary: Reports: no symptoms Musculoskeletal: Reports: no symptoms Skin: Reports: no symptoms Psychiatric: Reports: no symptoms Neurological: Reports: no symptoms Endocrine: Reports: no symptoms Hematologic/Lymphatic: Reports: no symptoms Physical Exam General Appearance: no apparent distress, alert Lines, tubes and drains: peripheral HEENT: normocephalic, atraumatic Neck: non-tender, normal alignment, supple, normal inspection Respiratory/Chest: chest wall non-tender, lungs clear Cardiovascular/Chest: normal peripheral pulses, normal rate, regular rhythm, no JVD Abdomen: normal bowel sounds, non tender, soft, no organomegaly Extremities: normal range of motion, non-tender Neurologic: bowling floor manager II-XII grossly normal, no motor/sensory deficits, alert, oriented x 3 Last 24 Hour Vital Signs Date Time Temp Pulse Resp B/P (MAP) Pulse Ox O2 Delivery O2 Flow Rate FiO2 04/14/19 16:55 98.3 86 17 124/72 99 Room Air 04/14/19 14:41 98.2 94 16 118/68 98 Room Air 04/14/19 14:41 94 16 Room Air 04/14/19 14:31 98.4 102 18 117/66 (83) 96 Room Air Laboratory Tests Test 04/14/19 14:47 04/14/19 15:00 White Blood Count 9.0 K/UL (4.8-10.8) Red Blood Count 4.08 M/UL (4.20-5.40) L Hemoglobin 12.7 G/DL (12.0-16.0) Hematocrit 36.0 % (37.0-47.0) L Mean Corpuscular Volume 88 FL (80-99) Mean Corpuscular Hemoglobin 31.0 PG (27.0-31.0) Mean Corpuscular Hemoglobin Concent 35.2 G/DL (32.0-36.0) Red Cell Distribution Width 13.0 % (11.6-14.8) Platelet Count 214 K/UL (150-450) Mean Platelet Volume 7.4 FL (6.5-10.1) Neutrophils (%) (Auto) 76.1 % (45.0-75.0) H Lymphocytes (%) (Auto) 18.4 % (20.0-45.0) L Monocytes (%) (Auto) 4.0 % (1.0-10.0) Eosinophils (%) (Auto) 0.6 % (0.0-3.0) Basophils (%) (Auto) 0.9 % (0.0-2.0) Prothrombin Time 9.9 SEC (9.30-11.50) Prothromb Time International Ratio 0.9 (0.9-1.1) Activated Partial Thromboplast Time 23 SEC (23-33) Sodium Level 145 MMOL/L (136-145) Potassium Level 3.3 MMOL/L (3.5-5.1) L Chloride Level 106 MMOL/L (98-107) Carbon Dioxide Level 29 MMOL/L (21-32) Anion Gap 11 mmol/L (5-15) Blood Urea Nitrogen 16 mg/dL (7-18) Creatinine 0.8 MG/DL (0.55-1.30) Estimat Glomerular Filtration Rate > 60 mL/min (>60) Glucose Level 73 MG/DL (74-106) L Calcium Level 9.0 MG/DL (8.5-10.1) Total Bilirubin 0.4 MG/DL (0.2-1.0) Aspartate Amino Transf (AST/SGOT) 13 U/L (15-37) L Alanine Aminotransferase (ALT/SGPT) 22 U/L (12-78) Alkaline Phosphatase 128 U/L (46-116) H Total Creatine Kinase 103 U/L (26-308) Creatine Kinase MB 0.9 NG/ML (0.0-3.6) Creatine Kinase MB Relative Index 0.8 Troponin I 0.000 ng/mL (0.000-0.056) Total Protein 7.8 G/DL (6.4-8.2) Albumin 3.9 G/DL (3.4-5.0) Globulin 3.9 g/dL Albumin/Globulin Ratio 1.0 (1.0-2.7) Lipase 146 U/L (73-393) Thyroid Stimulating Hormone (TSH) 1.245 uiU/mL (0.358-3.740) Free Thyroxine 0.95 NG/DL (0.76-1.46) Free Triiodothyronine 2.2 pg/mL (2.3-4.2) L Urine Color Yellow Urine Appearance Clear Urine pH 5 (4.5-8.0) Urine Specific [place] 1.025 (1.005-1.035) Urine Protein 1+ (NEGATIVE) H Urine Glucose (UA) Negative (NEGATIVE) Urine Ketones Negative (NEGATIVE) Urine Blood Negative (NEGATIVE) Urine Nitrite Negative (NEGATIVE) Urine Bilirubin Negative (NEGATIVE) Urine Urobilinogen 1 MG/DL (0.0-1.0) H Urine Leukocyte Esterase 2+ (NEGATIVE) H Urine RBC 0 /HPF (0 - 2) Urine WBC 0-2 /HPF (0 - 2) Urine Squamous Epithelial Cells Few /LPF (NONE/OCC) Urine Calcium Oxalate Crystals Few /LPF (NONE) Urine Bacteria Occasional /HPF (NONE) Height (Feet): 5 Height (Inches): 1.00 Weight (Pounds): 147 Assessment/Plan Status: stable Assessment/Plan: Assessment Dizziness Pre syncope palpitations Headache Plan -monitor on telemetry -Replete electrolytes -Echocardiogram -Follow up outpatient for ziopatch -Stress test as outpatient -Check orthostatics -IV fluids -Neuro consult for headache Edgard Fallon MD Apr 14, 2019 18:30
--- NOTE | 2019-04-14 18:39 | NUR ---
CASE MANAGEMENT: REVIEW 63Y/F PRESENTED TO ED FROM HOME CC: DIZZY AND PALPITATION SI: PRE-SYNCOPE . CHEST PAIN T 98.4 HR 102 RR 18 BP 117/66 SAT 96% ROOM AIR K 3.3 GLUCOSE 73 AST 13 ALK PHOS 128 IS: NS IVF BOLUS X1 ASA PO X1 PATIENT ADMITTED TO TELEMETRY UNIT 04/04/2019 DCP: PATIENT IS FROM HOME
--- NOTE | 2019-04-14 19:04 | NUR ---
NURSE NOTES: call placed agaiN to Dr. Paez for orders awaiting call back. will follow
[2019-04-14 19:06] VITALS: BP 140/75
--- NOTE | 2019-04-14 19:50 | NUR ---
NURSE NOTES: Received pt and report from ED Corbin. Observed pt resting in bed with both eyes open. teletypesetter monitor is in placed, IV site intact, asymptomatic, and patent. Bed is in the lowest position, locked and alarmed. Call light within reach. Fall precaution noted. Pt is admitted for pre syncope. No signs/symptoms of acute distress noted at this time. Will continue plan of care.
[2019-04-14 20:00] VITALS: BP 123/78
--- NOTE | 2019-04-14 20:05 | NUR ---
NURSE NOTES: Received orders from Dr. Craig. carried out. will follow
--- NOTE | 2019-04-14 20:07 | NUR ---
HAND-OFF: Report given to Mahesh Zendejas. Plan of care endorsed..
[2019-04-15] VITALS: BP 115/59
[2019-04-15 04:00] VITALS: BP 124/72
--- NOTE | 2019-04-15 07:20 | NUR ---
NURSE NOTES: Nurse report given by ED Zendejas. Patient's awake and sitting at bedside to eat breakfast. Patient's comfortable, no s/s of acute distress or SOB, denies pain. IV site is patent, running fluid, asymptomatic. Bed at lowest position, break engaged and call light within reach. Will continue to monitor.
--- NOTE | 2019-04-15 07:30 | NUR ---
HAND-OFF: Report given to ED Power.
[2019-04-15 08:00] VITALS: BP 127/76
[2019-04-15] MEDS ORDERED: Aspirin Baby 81mg ORAL SCH (09:00)
--- NOTE | 2019-04-15 09:04 | Cardiology Progress Note ---
Assessment/Plan Status: stable Assessment/Plan Assessment/Plan Status: stable Assessment/Plan: Assessment Dizziness Pre syncope palpitations Headache Plan -monitor on telemetry - no arrhythmias overnight -Replete electrolytes -Echocardiogram pending -Follow up outpatient for ziopatch -Stress test as outpatient -Check orthostatics -IV fluids -Neuro consult for headache -ok to d.c today if Echo normal Subjective Cardiovascular: Reports: no symptoms Respiratory: Reports: no symptoms Gastrointestinal/Abdominal: Reports: no symptoms Genitourinary: Reports: no symptoms Subjective No acute events, tolerating PO, no palpitations or headache anymore. Vitals stable, no fevers. Objective Last 24 Hour Vital Signs Date Time Temp Pulse Resp B/P (MAP) Pulse Ox O2 Delivery O2 Flow Rate FiO2 04/15/19 04:00 97.5 63 18 124/72 (89) 96 04/15/19 04:00 61 04/15/19 00:00 97.4 64 17 115/59 (77) 95 04/15/19 00:00 64 04/14/19 21:00 Room Air 04/14/19 20:00 77 04/14/19 20:00 97.7 77 17 123/78 (93) 97 04/14/19 19:06 97.8 77 16 140/75 (96) 98 04/14/19 18:25 Room Air 04/14/19 16:55 98.3 86 17 124/72 99 Room Air 04/14/19 14:41 98.2 94 16 118/68 98 Room Air 04/14/19 14:41 94 16 Room Air 04/14/19 14:31 98.4 102 18 117/66 (83) 96 Room Air General Appearance: no apparent distress, alert EENT: PERRL/EOMI, normal ENT inspection, TMs normal, pharynx normal Neck: non-tender, normal alignment, supple, normal inspection, no JVD Rhythm: NSR Cardiovascular: normal peripheral pulses, normal rate, regular rhythm Respiratory/Chest: chest wall non-tender, lungs clear Abdomen: normal bowel sounds, non tender Extremities: normal range of motion, non-tender, normal inspection, no calf tenderness, no swelling 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, no motor/sensory deficits Intake and Output 04/14/19 04/15/19 19:00 07:00 Intake Total 75 ml 990 ml Balance 75 ml 990 ml Intake Oral 240 ml IV Total 75 ml 750 ml # Voids 1 3 Laboratory Tests Test 04/14/19 14:47 04/14/19 15:00 04/15/19 00:35 04/15/19 07:55 White Blood Count 9.0 K/UL (4.8-10.8) Red Blood Count 4.08 M/UL (4.20-5.40) L Hemoglobin 12.7 G/DL (12.0-16.0) Hematocrit 36.0 % (37.0-47.0) L Mean Corpuscular Volume 88 FL (80-99) Mean Corpuscular Hemoglobin 31.0 PG (27.0-31.0) Mean Corpuscular Hemoglobin Concent 35.2 G/DL (32.0-36.0) Red Cell Distribution Width 13.0 % (11.6-14.8) Platelet Count 214 K/UL (150-450) Mean Platelet Volume 7.4 FL (6.5-10.1) Neutrophils (%) (Auto) 76.1 % (45.0-75.0) H Lymphocytes (%) (Auto) 18.4 % (20.0-45.0) L Monocytes (%) (Auto) 4.0 % (1.0-10.0) Eosinophils (%) (Auto) 0.6 % (0.0-3.0) Basophils (%) (Auto) 0.9 % (0.0-2.0) Prothrombin Time 9.9 SEC (9.30-11.50) Prothromb Time International Ratio 0.9 (0.9-1.1) Activated Partial Thromboplast Time 23 SEC (23-33) Sodium Level 145 MMOL/L (136-145) Potassium Level 3.3 MMOL/L (3.5-5.1) L Chloride Level 106 MMOL/L (98-107) Carbon Dioxide Level 29 MMOL/L (21-32) Anion Gap 11 mmol/L (5-15) Blood Urea Nitrogen 16 mg/dL (7-18) Creatinine 0.8 MG/DL (0.55-1.30) Estimat Glomerular Filtration Rate > 60 mL/min (>60) Glucose Level 73 MG/DL (74-106) L Calcium Level 9.0 MG/DL (8.5-10.1) Total Bilirubin 0.4 MG/DL (0.2-1.0) Aspartate Amino Transf (AST/SGOT) 13 U/L (15-37) L Alanine Aminotransferase (ALT/SGPT) 22 U/L (12-78) Alkaline Phosphatase 128 U/L (46-116) H Total Creatine Kinase 103 U/L (26-308) Creatine Kinase MB 0.9 NG/ML (0.0-3.6) Creatine Kinase MB Relative Index 0.8 Troponin I 0.000 ng/mL (0.000-0.056) 0.010 ng/mL (0.000-0.056) 0.004 ng/mL (0.000-0.056) Total Protein 7.8 G/DL (6.4-8.2) Albumin 3.9 G/DL (3.4-5.0) Globulin 3.9 g/dL Albumin/Globulin Ratio 1.0 (1.0-2.7) Lipase 146 U/L (73-393) Thyroid Stimulating Hormone (TSH) 1.245 uiU/mL (0.358-3.740) Free Thyroxine 0.95 NG/DL (0.76-1.46) Free Triiodothyronine 2.2 pg/mL (2.3-4.2) L Urine Color Yellow Urine Appearance Clear Urine pH 5 (4.5-8.0) Urine Specific [place] 1.025 (1.005-1.035) Urine Protein 1+ (NEGATIVE) H Urine Glucose (UA) Negative (NEGATIVE) Urine Ketones Negative (NEGATIVE) Urine Blood Negative (NEGATIVE) Urine Nitrite Negative (NEGATIVE) Urine Bilirubin Negative (NEGATIVE) Urine Urobilinogen 1 MG/DL (0.0-1.0) H Urine Leukocyte Esterase 2+ (NEGATIVE) H Urine RBC 0 /HPF (0 - 2) Urine WBC 0-2 /HPF (0 - 2) Urine Squamous Epithelial Cells Few /LPF (NONE/OCC) Urine Calcium Oxalate Crystals Few /LPF (NONE) Urine Bacteria Occasional /HPF (NONE) Edgard Fallon MD Apr 15, 2019 09:03
--- NOTE | 2019-04-15 11:27 | NUR ---
*-* NO INSURANCE INFORMATION IN THE BAR UNABLE TOSEND CLINICALS OR REVIEWS *-*
--- NOTE | 2019-04-15 11:39 | NUR ---
*-* INSURANCE *-* ALL CLINICALS AND REVIEWS HAVE BEEN FAXED TO: JENNIE YARBROUGH: N/A F:[phone] REF# [id number]
[2019-04-15 12:00] VITALS: BP 117/67
--- NOTE | 2019-04-15 12:50 | NUR ---
NURSE NOTES: Patient is discharged per Dr. Hawley's order. Order is acknowledged and carried out. Patient's discharged paper is signed by patient. Patient's belonging list went over with patient and signed by patient. IV and teletypesetter monitor are removed. ID band is removed and disposed. Patient's stable, AO x4, ambulated, no s/s of distress or SOB, denies pain. Patient's son is at bedside and taking her home.
--- NOTE | 2019-04-15 12:55 | NUR ---
NURSE NOTES: Patient's off the floor at 1250. 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
--- NOTE | 2019-04-15 16:45 | History and Physical Report ---
DATE OF ADMISSION: 04/14/2019 HISTORY OF PRESENT ILLNESS: The patient is a 63-year-old female who came to the hospital with palpitations. She also reports dizziness. She was seen and worked up in the ER. She was also seen by Cardiology. Her initial x-ray chest and troponin has been negative. The patient states that and she is feeling well. PAST MEDICAL HISTORY: Notable for diabetes mellitus, degenerative osteoarthrosis, questionable history of breast CA. HOME MEDICATIONS: Arimidex, aspirin, Lipitor, Prozac, glipizide, meloxicam, metformin, Robaxin, and Janumet. SOCIAL HISTORY: Denies alcohol or tobacco usage. REVIEW OF SYSTEMS: The patient denies any headaches, hematemesis, melena, hematochezia, night sweats, or weight loss. Past history as discussed above notable for hyperlipidemia, hypertension, diabetes mellitus, and breast CA. PHYSICAL EXAMINATION: GENERAL: Reveals a 63-year-old female. VITAL SIGNS: Blood pressure is 130/60, heart rate is 74, respiratory rate 18. She is afebrile. HEENT: Unremarkable. CHEST: Clear breath sounds bilaterally. ABDOMEN: Soft. NEUROLOGIC: Nonfocal. LABORATORY DATA: Normal CBC and BMP. Troponin negative x3. Potassium borderline low. Urinalysis is negative. Coags negative. IMAGING STUDIES: X-ray of chest is unremarkable. EKG normal sinus rhythm. IMPRESSION: 1. History of breast CA. 2. Nonspecific chest pain. 3. Palpitations. DISCUSSION: The patient is doing well at this point in time. We will discharge her home with resumption of home medications. Seen by Cardiology. We will consider outpatient Holter as indicated. We will follow upon discharge. Rober Craig M.D. DR: Deena JOB#: [id number] CC:
--- NOTE | 2019-04-15 18:01 | Cardiology Report ---
APPROVED REPORT EXAM: Two-dimensional and M-mode echocardiogram with Doppler and color Doppler. INDICATION LV FUNCTION M-Mode DIMENSIONS IVSd1.1 (0.7-1.1cm)Left Atrium (MM)3.2 (1.6-4.0cm) LVDd4.8 (3.5-5.6cm)Aortic Root2.8 (2.0-3.7cm) PWd0.8 (0.7-1.1cm)Aortic Cusp Exc.1.7 (1.5-2.0cm) IVSs1.5 cm LVDs3.2 (2.5-4.0cm) PWs1.0 cm Normal left ventricular chamber size, systolic function and wall motion . Left ventricular ejection fraction estimated to be 60-65%. No evidence left ventricular hypertrophy. Anterior Echo-free space, may be due to pericardial fat or effusion. All other cardiac chamber sizes are within normal limits. Aortic valve calcification with normal cusp excursion . Mildly thickened mitral valve leaflets with normal excursion. Mild mitral annulus and aortic root calcification. Pulmonic valve not well visualized. IVC at normal size with physiologic collapse . A color flow and spectral Doppler study was performed and revealed: No aortic insufficiency . Mitral inflow indicates normal left ventricular diastolic function. Mild to moderate mitral regurgitation. Mild tricuspid regurgitation. Tricuspid systolic velocities suggests peak right ventricular systolic pressure of 29mmHg.
--- NOTE | 2019-04-16 11:17 | Discharge Summary ---
Discharge Summary Discharge Summary _ DATE OF ADMISSION 04/14/2019 DATE OF DISCHARGE: 04/15/2019 DISCHARGED BY: Dr. Craig REASON FOR ADMISSION: 63 years old female with past medical history of diabetes mellitus, degenerative osteoarthritis, history of breast cancer, presented to the hospital with palpitations for 1 month, lightheadedness for 2 days and some chest pressure. She reported nausea, but no vomiting and dizziness. Vital signs were stable , heart rate 102. Laboratory work-up revealed no leukocytosis, stable hemoglobin and hematocrit. Troponin negative. EKG revealed sinus rhythm, no acute ischemic changes. Urinalysis revealed +1 protein, no evidence of UTI . Potassium 3.3 . Stable renal parameters Chest x-ray revealed no acute cardiopulmonary pathology. Patient subsequently admitted to telemetry floor for further evaluation and management. CONSULTANTS: herbarium curator Dr. Fallon [facility] COURSE: Patient admitted to telemetry floor. Serial troponin were negative. EKG revealed no acute ischemic changes. Patient was ruled out for acute myocardial infarction. Potassium was repleted. Echocardiogram subsequently was done and revealed preserved ejection fraction of 60 to 65%. No evidence of left ventricular hypertrophy. No evidence of wall motion abnormality. Right ventricular systolic pressure of 29. Antiplatelet therapy with aspirin continued. Patient received 1 L of the IV fluid. Heart rate and blood pressure stable. Chest pressure resolved, no further palpitation. Patient was cleared for discharge home. Patient to follow-up with primary care provider . Finisher Brush recommended stress test as outpatient. Consider outpatient Holter as indicated. Due to rapid and unexpected improvement in patient condition, patient was discharged in 1 day. FINAL DIAGNOSES: Chest pain , nonspecific History of breast cancer Palpitations Dizziness Presyncope DISCHARGE MEDICATIONS: See Medication Reconciliation list. DISCHARGE INSTRUCTIONS: Patient was discharged home . Follow up with primary care provider in one week. I have been assigned to dictate discharge summary for this account. I was not involved in the patient's management. Staci Madsen NP Apr 16, 2019 11:17
--- NOTE | 2019-04-16 15:01 | NUR ---
*-* INSURANCE *-* DISCHARGE SUMMARY HAS BEEN FAXED TO: JENNIE YARBROUGH: N/A F:[phone] REF# [id number]
== END 2019-04-15 12:00 | disposition home or self-care (01) | DRG 207 ==
LOC: EDBEDREQ 14:51 → EMR 15:25 → 2E 15:50 → EDBEDREQ 16:20
DX: R00.2 Palpitations (principal); R07.89 Other chest pain; R42 Dizziness and giddiness; E11.9 Type 2 diabetes mellitus without complications; Z85.3 Personal history of malignant neoplasm of breast; M19.90 Unspecified osteoarthritis, unspecified site; R55 Syncope and collapse; R51 Headache; Z79.84 Long term (current) use of oral hypoglycemic drugs; Z79.82 Long term (current) use of aspirin
CPT/HCPCS: 36415; 71045; 80053; 81003; 82550; 82553; 82962; 83690; 84439; 84443; 84481; 84484; 85025; 85610; 85730; 93005; 93306; 96360; 99285; J8499

== ENCOUNTER 2019-08-20 02:15 | Emergency (ER) | payer MEDICAID ==
[~2019-08-20] VITALS: Ht 157.5 cm; Wt 66.7 kg
[~2019-08-20 02:15] MED LIST changes: +GLIMEPIRIDE4 MG ORAL; +JANUMET 50-5001 EACH ORAL
[2019-08-20 02:25] VITALS: BP 122/69
[2019-08-20] MEDS ORDERED: AMBIEN5 MG ORAL ×2 (02:37→02:39)
[2019-08-20 02:40] VITALS: BP 122/69
--- NOTE | 2019-08-20 02:42 | Emergency Room Report ---
History of Present Illness General Chief Complaint: General Complaint Source: Medical Record Present Illness HPI Patient is a 63-year-old female presents after increased insomnia. Patient reports having difficulty sleeping for the past 3 days. She denies any recent increased pain or other symptoms. She reports having only difficulty with sleeping. She does report having some increased anxiety. She been taking Benadryl after seeing her physician. She denies any other current complaints. She had prior history of diabetes. Allergies: Coded Allergies: No Known Allergies (Unverified , 03/03/13) Patient History Past Medical History: see triage record Reviewed Nursing Documentation: PMH: Agreed; PSxH: Agreed Nursing Documentation-PMH Past Medical History: No History, Except For Hx Hypertension: Yes Hx Diabetes: Yes Hx Cancer: Yes - R BREAST Hx Gastrointestinal Problems: No Hx Neurological Problems: No Review of Systems All Other Systems: negative except mentioned in HPI Physical Exam Vital Signs Date Time Temp Pulse Resp B/P (MAP) Pulse Ox O2 Delivery O2 Flow Rate FiO2 08/20/19 02:18 98.1 71 18 126/71 (89) 94 Room Air General Appearance: well appearing, no apparent distress, alert, GCS 15 Head: normocephalic, atraumatic ENT: hearing grossly normal, normal voice Neck: full range of motion, supple Respiratory: lungs clear, normal breath sounds, no respiratory distress, speaking full sentences Gastrointestinal: normal inspection Musculoskeletal: no calf tenderness Neurologic: alert, motor strength/tone normal, 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 as tested, EOM palsy, normal gait Psychiatric: normal inspection, judgement/insight normal, mood/affect normal Skin: no rash Medical Decision Making Diagnostic Impression: Primary Impression: Insomnia Last Vital Signs Date Time Temp Pulse Resp B/P (MAP) Pulse Ox O2 Delivery O2 Flow Rate FiO2 08/20/19 02:25 98.1 80 16 122/69 94 Room Air Disposition: HOME, SELF-CARE Condition: Stable Scripts Zolpidem Tartrate* (AMBIEN*) 5 Mg Tablet 5 MG ORAL BEDTIME PRN for Insomnia, #7 TAB Prov: Davion Hugo MD 08/20/19 Patient Instructions: Insomnia Additional Instructions: Follow up with your doctor for recheck. Do not take sleep medications and drive or operate machinery. Davion Hugo MD Aug 20, 2019 02:42
== END 2019-08-20 02:40 | disposition home or self-care (01) ==
LOC: EMR 02:31
DX: G47.00 Insomnia, unspecified (principal); F41.9 Anxiety disorder, unspecified; I10 Essential (primary) hypertension; E11.9 Type 2 diabetes mellitus without complications; Z85.3 Personal history of malignant neoplasm of breast
CPT/HCPCS: 99282